=== PATIENT | female | born 1990 | race Hispanic/Latino ===

== ENCOUNTER → 2019-07-25 08:33 | Outpatient (CLI) | payer OTHER, SELFPAY ==
--- NOTE | 2019-07-25 | DI.MRI.S_ITS ---
PROCEDURE: MR WRIST RT W CON INDICATIONS: CHRONIC ULNAR RIGHT WRIST PAIN TECHNIQUE: After the administration of 3-4 mL of dilute intra-articular Gadolinium contrast into the radiocarpal compartment, coronal T1 spin echo with fat saturation and T2 fast spin echo with fat saturation, axial T1 spin echo and T2 fast spin echo with fat saturation, sagittal T1 spin echo with and without fat saturation through the wrist. COMPARISON: [facility], , [place] WRIST INJECTION MR/CT RT, 07/25/2019, 8:58. FINDINGS: Image quality: Excellent. Bones and cartilage: The carpal bones are normally aligned. No bone marrow contusions or fractures. No evidence for avascular necrosis. Overlying cartilage surfaces appear normal. Carpal ligaments: The scapholunate ligament appears intact. The lunotriquetral ligament is not well seen. Additionally, there is gadolinium extravasation into the mid-carpal compartment. The radioscaphocapitate and radiolunotriquetral ligaments appear intact. The arcuate ligament and short radiolunate ligament also appear normal. The dorsal intercarpal and radiotriquetral ligaments appear intact. On sagittal images, the pisohamate ligament appears intact. Triangular fibrocartilage complex: Pinpoint presumed full-thickness perforation at the junction of the central disc and radial attachment of the TFCC. Associated gadolinium extravasation into the distal radioulnar joint. The adjacent meniscal homolog appears normal. The ulnar collateral ligament appears intact. The extensor carpi ulnaris tendon is normal in location and morphology. Tendons and soft tissues: The carpal tunnel structures appear normal, including the median nerve. The ulnar nerve appears normal within Guyon's canal. All six extensor tendon compartments demonstrate normal morphology, without pathologic tendon sheath fluid. No soft tissue ganglion cysts. IMPRESSION: Full-thickness pinpoint perforation at the junction of the radial attachment and central disc of the TFCC. Associated leakage of injected gadolinium contrast material into the distal radial ulnar joint. Minimal if any radiocarpal/ulnocarpal chondral loss. Lunotriquetral ligament not well seen and presumably ruptured. Associated gadolinium contrast material seen within the midcarpal compartment Dictated by: Dayne Mcgrath M.D. on 07/25/2019 at 10:50 Approved by: Dayne Mcgrath M.D. on 07/25/2019 at 10:56
--- NOTE | 2019-07-25 | DI.RAD.S_ITS ---
PROCEDURE: [place] WRIST INJECTION MR/CT RT INDICATIONS: CHRONIC ULNAR RIGHT WRIST PAIN TECHNIQUE: After informed consent had been obtained, the wrist was examined fluoroscopically, and a site chosen for injection of the radiocarpal compartment from a dorsal approach. Skin was prepped and draped in a sterile fashion and 1% lidocaine infiltrated from the skin down to the articular surface. A hypodermic needle was then introduced into the articular space and a modest amount of contrast medium was instilled confirming intra-articular needle tip placement. This was followed by approximately 4 mL of a dilute gadolinium solution. Needle was removed and dressing was applied. The patient experienced no complications throughout the procedure and left the fluoroscopic suite in no apparent distress. FINDINGS: A single fluoroscopic spot image demonstrates intra-articular location to injected iodinated contrast. IMPRESSION: Successful fluoroscopic-guided administration of dilute Gadolinium solution for wrist MR arthrogram. Dictated by: Dayne Mcgrath M.D. on 07/25/2019 at 13:41 Approved by: Dayne Mcgrath M.D. on 07/25/2019 at 13:42
== END ==
DX: M25.531 Pain in right wrist (principal); G89.29 Other chronic pain
CPT/HCPCS: 20605; 73222; 77002